=== PATIENT | female | born 1980 | race Two or more races ===

== ENCOUNTER 2024-03-02 20:10 | Inpatient (IN) | payer OTHER, SELFPAY ==
[2024-03-02 20:11] VITALS: BMI 50.3
[2024-03-02 20:44] VITALS: BP 144/82; PULSE 99; RESP 18; TEMP 36.6; O2SAT 99
--- NOTE | 2024-03-02 21:14 | XR_ITS ---
Examination: CT abdomen with intravenous contrast CT pelvis with intravenous contrast 2-D coronal reconstructions 2-D sagittal reconstructions Date and time of exam:March 02, 2024 1138 hrs. Indications: Palpable lump between the buttock region with pain beginning 2 days ago. CTDI: vol (mGy) 21.01 DLP: (mGycm) 1491 Technique: Multiple axial sections of the abdomen and pelvis have been obtained. 64 slice high-resolution scanner used. 3 mm axial sections have been obtained, post intravenous injection 60 cc [id number] 2-D sagittal, coronal reconstructions obtained. Low dose protocols were performed. One or more of the following dose reduction techniques were used; automated exposure control, adjustment of the mA and/or KV according to patient size, use of iterative reconstruction technique. Findings: Liver irregular in contour with fatty infiltration Absent gallbladder Splenomegaly 16 cm No pancreatic mass No renal or ureteral calculi, no hydronephrosis Aorta normal size Normal appendix No bowel obstruction No diverticulitis Urinary bladder intact Cellulitis pattern extending from the posterior anal region to the right and left buttock area intergluteal fold, 5.7 x 2.5 cm, suspicious for early abscess Impression: Suspicious for early abscess in the posterior perianal region
--- NOTE | 2024-03-02 21:15 | PD.EDRME ---
Rapid Medical Screening Exam RME Arrival date/time: 03/02/24 20:10 43-year-old female with past medical history of prediabetes presents emergency department complaining of abscess to buttocks that is been ongoing for 2 days. Yes Chief Complaint: Skin/Abscess/Foreign Body Time Seen by Provider: 03/02/24 21:04 Vital signs: Vital Signs Temperature 98 F 03/02/24 20:44 Pulse Rate 99 03/02/24 20:44 Respiratory Rate 18 03/02/24 20:44 Blood Pressure 144/82 H 03/02/24 20:44 Pulse Oximetry (%) 99 03/02/24 20:44 Oxygen Delivery Method Room Air 03/02/24 20:44 Vital signs reviewed by provider: Yes
[2024-03-02] MEDS: KETOROLAC INJ 60 MG/2 ML VIAL 30 MG IM (21:22)
[2024-03-02 22:21] LABS: Collection Type, Urine Clean Catch; WBC,Urine 0 /hpf (0-5)
[2024-03-02 22:21] LABS: Lactate (Lactic Acid) 1.5 mMol/L (0.4-2.0)
[2024-03-02 22:22] LABS: Basophils # (Auto) 0.1 Thou/mm3 (0.0-0.2); Basophils % (Auto) 1 % (0-2.5); Eosinophils # (Auto) 0.5 Thou/mm3 (0.0-0.5); Eosinophils % (Auto) 4 % (0-10); Hematocrit 39.2 % (36.0-46.0); Hemoglobin 13.4 g/dL (12.0-16.0); Immature Granulocytes % (Auto) 1 % (0-0); Immature Granulocytes Auto 0.07 Thou/mm3 (0.00-0.00); Lymphocytes # (Auto) 2.1 Thou/mm3 (1.0-4.8); Lymphocytes % (Auto) 18 % (10-50); Mean Corpuscular HGB Conc 34.2 g/dl (31.0-37.0); Mean Corpuscular Hemoglobin 31.5 pg (25.0-35.0); Mean Corpuscular Volume 92 fL (80-100); Monocytes # (Auto) 0.6 Thou/mm3 (0.0-0.8); Monocytes % (Auto) 5 % (0-12); Neutrophils # (Auto) 8.3 Thou/mm3 (1.8-7.7); Neutrophils % (Auto) 72 % (37-80); Nucleated Red Blood Cell % 0 /100 WBC (0); Platelet Count 252 Thou/mm3 (140-440); RDW Standard Deviation 47.6 fL (36.4-46.3); Red Blood Count 4.25 Miln/mm3 (4.00-5.20); White Blood Count 11.6 Thou/mm3 (3.6-11.0)
[2024-03-02 22:36] LABS: HCG,Qualitative Serum Negative
[2024-03-02 22:38] LABS: B-Type Natriuretic Peptide < 20 pg/mL (0-100)
[2024-03-02 22:46] LABS: Partial Thromboplastin Time 27.7 Seconds (22.0-36.0); Prothrombin Time 10.7 Seconds (9.0-12.2)
[2024-03-02 22:47] LABS: Bacteria,Urine 1+; Bilirubin,Urine Negative (Negative); Blood,Urine 1+ (Negative); Clarity,Urine Clear (Clear/Hazy); Color,Urine Lt-Yellow (Lt Yel-Yel); Glucose, Urine 4+ (Negative); Ketones,Urine Negative (Negative); Leukocyte Esterase,Urine Negative (Negative); Nitrite,Urine Negative (Negative); PH,Urine 5.5 (5.0-7.0); Protein,Urine Negative (Neg - Trace); RBC,Urine 17 /hpf (0-3); Specific Gravity,Urine 1.034 (1.001-1.035); Squamous Epithelial Cell,Urine 2 /hpf (0-5); Urobilinogen,Urine Negative mg/dL (0.0-1.0)
[2024-03-02 22:48] LABS: Alanine Aminotransferase 21 U/L (10-49); Albumin, Serum 4.5 gm/dL (3.5-5.0); Albumin/Globulin Ratio 1.5 (1.2-2.2); Alkaline Phosphatase 88 U/L (46-116); Anion Gap 9 (7-16); Aspartate Amino Transferase 12 U/L (0-34); BUN/Creatinine Ratio 13 Ratio (12-20); Bilirubin,Total 0.5 mg/dL (0.3-1.2); Blood Urea Nitrogen 10 mg/dL (9-23); Calcium 10.1 mg/dL (8.3-10.6); Calcium (Corrected) 10.1 mg/dL (8.5-10.1); Carbon Dioxide 22.7 mMol/L (20.0-31.0); Chloride 105 mMol/L (98-107); Creatinine (Component) 0.8 mg/dL (0.6-1.3); Estimated Creatinine Clearance 143.7 mL/min (>60); Glucose 254 mg/dL (74-106); Lipase 35 U/L (12-53); Osmolality,Calculated 281 (275-295); Phosphorous 4.2 mg/dL (2.4-5.1); Potassium 3.8 mMol/L (3.4-5.1); Procalcitonin 0.13 ng/ml (0.0-0.49); Sodium 137 mMol/L (136-145); Total Protein 7.5 gm/dL (5.7-8.2); Troponin I < 0.002 ng/mL (0.0-0.045); eGFR > 60 See Note
[2024-03-02 23:17] VITALS: BP 152/74; PULSE 81; RESP 19; TEMP 37.3; O2SAT 96
--- NOTE | 2024-03-02 23:25 | PC.NURSE ---
PT CAME TO ER FOR C/O SEVERE PAIN TO COCCYX DUE TO ABSCESS FOR 2 DAYS.
[2024-03-03] VITALS (19 sets, daily range): BP systolic 112–165; BP diastolic 56–94; PULSE 58–102; RESP 12–23; TEMP 36.2–37; O2SAT 91–98
--- NOTE | 2024-03-03 02:16 | PD.EDSKIN ---
ED Skin Abcess FB-RME/HPI General Chief complaint: Skin/Abscess/Foreign Body Stated complaint: LUMP IN BETWEEN BUTTOCKS Time Seen by Provider: 03/02/24 21:04 Source: patient Arrival date/time: 03/02/24 20:10 Mode of arrival: ambulatory Limitations: no limitations RME / HPI RME / HPI narrative: 03/02/24 20:10 43-year-old female with past medical history of prediabetes presents emergency department complaining of abscess to buttocks that is been ongoing for [address] CLIFFORD MAIN ED EVALUATION: 43-year-old female who presents to the emergency department via private auto comes in for evaluation of an abscess to her coccyx area. Patient notes it has been tender and red ongoing for the past 2 days. Related Data Allergies Allergy/AdvReac Type Severity Reaction Status Date / Time hydromorphone [From Dilaudid] Allergy Verified 03/03/24 00:08 Review of Systems Review of Systems Systems Reviewed: All systems reviewed, normal except as documented Past Medical History Past Medical History CARDIAC: Positive Cardiac Disorders; Negative Congestive Heart Failure RESPIRATORY: Positive Asthma; Negative Chronic Obstructive Pulmonary Disease (COPD) GENITOURINARY: Negative Renal Disease ENDOCRINE: Positive Diabetes Mellitus Type 2; Negative Diabetes Mellitus Type 1 HEMATOLOGIC: Negative Sickle Cell Disease Social History SMOKING STATUS: Never smoker ED Exam Narrative Physical exam: GENERAL APPEARANCE: alert and oriented x 4, well-developed, well-nourished, no acute distress VITALS: All vitals were reviewed and the pulse ox is 95% on room air, which is normal according to my interpretation. HEENT: Normocephalic, atraumatic; pupils equal, round, reactive to light; EOMI; mucous membranes pink, moist; oropharynx clear NECK: Supple LUNGS: CTABL; no wheezes, no rales, no rhonchi HEART: Regular rate, regular rhythm; normal S1, S2; no murmurs ABDOMEN: non distended; normal BS; soft, no tenderness, no guarding, no rebound; no masses, no organomegaly, no hernia BACK: no CVA tenderness EXTREMITIES: atraumatic; no edema NEUROLOGIC: awake; alert and oriented x4; cranial nerves II-XII grossly intact; no focal sensory or motor deficits PSYCHIATRIC: appropriate mood and affect SKIN: warm, dry, normal color; no rashes General Limitations: Present no limitations Course Quality Measures none Orders Category Date Time Status CT Screening NOW Care 03/02/24 21:14 Completed Insert IV NOW Care 03/02/24 23:[address] abdomen pelvis w con Stat Exams 03/02/24 21:14 Completed B-Type Natriuretic Peptide Stat Lab 03/02/24 22:00 Completed Blood Culture (Lab) Stat Lab 03/02/24 22:03 Received CBC Stat Lab 03/02/24 22:00 Completed Comprehensive Metabolic Panel Stat Lab 03/02/24 22:00 Completed HCG,Qualitative Serum Stat Lab 03/02/24 22:00 Completed Lactate (Lactic Acid) Stat Lab 03/02/24 22:00 Completed Lipase Stat Lab 03/02/24 22:00 Completed Magnesium Stat Lab 03/02/24 22:00 Completed Partial Thromboplastin Time Stat Lab 03/02/24 22:00 Completed Phosphorous Stat Lab 03/02/24 22:00 Completed Procalcitonin Stat Lab 03/02/24 22:00 Completed Prothrombin Time with INR Stat Lab 03/02/24 22:00 Completed Troponin I Stat Lab 03/02/24 22:00 Completed Urinalysis Stat Lab 03/02/24 21:23 Completed Urine Culture Stat Lab 03/02/24 21:23 Received Ketorolac Inj [Toradol Inj] Med 03/02/24 21:17 Discontinued 30 mg IM X1 ONE Lidocaine 1% 20 ml [Xylocaine 1% 20 ML] Med 03/03/24 01:41 Discontinued 10 ml INFL X1 ONE Vital Signs Vital signs: Vital Signs Temperature 98 F 03/02/24 20:44 Pulse Rate 99 03/02/24 20:44 Respiratory Rate 18 03/02/24 20:44 Blood Pressure 144/82 H 03/02/24 20:44 Pulse Oximetry (%) 99 03/02/24 20:44 Oxygen Delivery Method Room Air 03/02/24 20:44 Skin / Abscess / Foreign Body MDM Narrative MDM Narrative:: Scribe Attestation: Natalie Garcia am scribing for and in the presence of Dr. Clifford. Provider Notation: Although this document has been carefully reviewed, there may still be some phonetic and other typographical errors. These errors are purely grammatical due to imperfections in the software program and should not be construed in any way to compromise the substance of the patient's medical care during this visit. Patient data External records reviewed:: Other (specify) Clinical information provided by:: patient Social determinants that could affect healthcare access:: none Patient has the following chronic illnesses:: DM2, asthma How is presenting disease/condition affected by chronic disease/condition?: uneffected by Evaluation data The following diagnostics were reviewed and interpreted by me:: lab results and radiology exam(s) Lab and/or radiology exams considered but not ordered:: n/a Interpretation Summary: I personally reviewed the radiology data and agree with the radiologist's interpretation. Examination: CT abdomen with intravenous contrast CT pelvis with intravenous contrast 2-D coronal reconstructions 2-D sagittal reconstructions Date and time of exam:March 02, 2024 1138 hrs. Indications: Palpable lump between the buttock region with pain beginning 2 days ago. Findings: Liver irregular in contour with fatty infiltration Absent gallbladder Splenomegaly 16 cm No pancreatic mass No renal or ureteral calculi, no hydronephrosis Aorta normal size Normal appendix No bowel obstruction No diverticulitis Urinary bladder intact Cellulitis pattern extending from the posterior anal region to the right and left buttock area intergluteal fold, 5.7 x 2.5 cm, suspicious for early abscess Impression: Suspicious for early abscess in the posterior perianal region Dictated By: Rahul Mayen MD Medications / Prescriptions Medications or Prescriptions considered but not ordered:: n/a Medication administrations:: Medication Administration History Acetaminophen (Acetaminophen 325 Mg Tablet) 650 mg PO Q6H PRN PRN Reason: Pain 1-3 and/or Fever >100.1 Stop: 04/02/24 03:42 Ondansetron HCl (Ondansetron Inj 2 Mg/Ml Inj 2 Ml) 4 mg IV Q6H PRN; Protocol PRN Reason: NAUSEA OR VOMITING Stop: 04/02/24 03:42 Pantoprazole Sodium (Pantoprazole Inj 40 Mg Vial) 40 mg IVP QDAY KASSY Stop: 04/02/24 08:59 Discontinued Medications Ketorolac Tromethamine (Ketorolac Inj 60 Mg/2 Ml Vial) 30 mg IM X1 ONE Stop: 03/02/24 21:18 Last Admin: 03/02/24 21:22 Dose: 30 mg Documented By: OA Lidocaine HCl (Lidocaine Hcl 1% 20 Ml Vial) 10 ml INFL X1 ONE Stop: 03/03/24 01:42 Last Admin: 03/03/24 02:15 Dose: Not Given Documented By: CVL Non-Admin Reason: Other, see note Comments: DID NOT USE as above Consultations Consultation(s) initiated? (list below): Yes Consultation #1 (Physician, Specialty, Details): Hospitalist made aware of the patient?s HPI, PMHx, lab and/or radiology results. Treatment plan was discussed. Will admit for further evaluation and management. Accepts patient for admission. Time: 03:50 Diagnosis Skin/Abscess Differential Diagnosis: abscess of skin or subcutaneous tissue, cellulitis, eczema and contact dermatitis Most likely diagnosis given after review of the tests above:: Perianal abscess Admission Indicated Admission indicated?: indicated Admission Request Was there a request for admission?: Yes Admission Attestation Admission request attestation: Discussed case with [] from Hospitalist service regarding admission. Discussed patients ED course, exam findings, labs, and radiology results. The Hospitalist [agrees,declines] to accept the patient for admission. Disposition Plan Disposition Plan: Admit
--- NOTE | 2024-03-03 03:47 | PD.RESHP ---
Documentation for date of: 03/03/24 HPI History of Present Illness Chief complaint: Lower back pain, perianal abscess draining History of present illness: 43-year-old female with past medical history of morbid obesity, hypertension, [id number] type 2 diabetes, history of cholecystectomy and presented to the ED on 03/02 with draining abscess in the gluteal cleft. Patient states that about 3 days ago she started having some discomfort near her lower back and buttock area. She went to her primary care physician at [facility] who prescribed antibiotic cream and stated that if the pain did not improve to present to the ED. Patient states that prior to admission the pain was extremely severe, about a 9 out of 10 along with difficulty ambulating due to the pain. Patient has never experienced such pain before; moreover, she states that prior to that she has not had an abscess or a cyst. 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 In the ED, patient presented mildly hypertensive 144/82, heart rate 99, respiratory 18, afebrile satting 99 on room air. Pertinent lab findings include WBC 11.6, glucose 254, troponin within normal limits, BNP less than 20, Pro-Suman 0.13. Urinalysis was only positive for bacteria; but patient denies dysuria. CT abdomen pelvis shows early abscess in the posterior perianal region measuring 5.7 x 2.5 cm, splenomegaly measuring 16 cm, liver irregular with fatty infiltration. Patient will be admitted for perianal abscess that is draining; requiring likely incision and drainage, general surgery has been consulted - appreciate recommendations. Exam Vital Signs Temp Pulse Resp BP Pulse Ox O2 Del Method 97.7 F 66 16 128/73 95 Room Air 03/03/24 02:40 03/03/24 02:40 03/03/24 02:40 03/03/24 02:40 03/03/24 02:40 03/03/24 02:40 Narrative Exam Physical Exam: GENERAL: Awake, answering questions appropriately, appears stated age, morbidly obese HEENT: NC/AT. Moist mucosa. PERRLA/EOMI. Alopecia noted. CARDIO: Heart RRR, no obvious murmurs, no JVD. PULM: No coughing or visible SOB. Lungs CTA B/L. GI: Abdomen soft, NT/ND, +BS. : Perianal abscess noted draining purulent material SKIN/MSK/EXT: No wounds/discoloration/rashes/edema/amputations. +Pedal pulses present B/L. NEURO: Oriented x3, paper machine backtender strength 5/5, Moves extremities x4. Results: Labs 03/03/24 05:17 03/02/24 22:00 Labs: Short CBC 03/02/24 Range/Units 22:00 WBC 11.6 H (3.6-11.0) Thou/mm3 Hgb 13.4 (12.0-16.0) g/dL Hct 39.2 (36.0-46.0) % Plt Count 252 (140-440) Thou/mm3 BMP 03/02/24 22:00 Sodium 137 Potassium 3.8 Chloride 105 Carbon Dioxide 22.7 BUN 10 Creatinine 0.8 Glucose 254 H Calcium 10.1 Cardiac Enzymes 03/02/24 Range/Units 22:00 Troponin I < 0.002 (0.0-0.045) ng/mL Liver Function 03/02/24 Range/Units 22:00 Total Bilirubin 0.5 (0.3-1.2) mg/dL AST 12 (0-34) U/L ALT 21 (10-49) U/L Alkaline Phosphatase 88 (46-116) U/L Albumin 4.5 (3.5-5.0) gm/dL Urine 03/02/24 Range/Units 21:23 Urine Color Lt-Yellow (Lt Yel-Yel) Urine Clarity Clear (Clear/Hazy) Urine pH 5.5 (5.0-7.0) Ur Specific [place] 1.034 (1.001-1.035) Urine Protein Negative (Neg - Trace) Urine Glucose (UA) 4+ A (Negative) Quality Measures Quality Measures VTE prophylaxis Medications Home Medications and Allergies Home Medications ?Medication ?Instructions ?Recorded ?Confirmed ?Type lisinopril 20 mg tablet 20 mg PO DAILY 03/03/24 03/03/24 History montelukast 10 mg tablet 10 mg PO DAILY 03/03/24 03/03/24 History simvastatin 20 mg tablet 20 mg PO HS 03/03/24 03/03/24 History Allergies Allergy/AdvReac Type Severity Reaction Status Date / Time hydromorphone [From Dilaudid] Allergy Verified 03/03/24 00:08 Visit Medications Acetaminophen (Acetaminophen 325 Mg Tablet) 650 mg PO Q6H PRN PRN Reason: Pain 1-3 and/or Fever >100.1 Stop: 04/02/24 03:42 Ondansetron HCl (Ondansetron Inj 2 Mg/Ml Inj 2 Ml) 4 mg IV Q6H PRN; Protocol PRN Reason: NAUSEA OR VOMITING Stop: 04/02/24 03:42 Pantoprazole Sodium (Pantoprazole Inj 40 Mg Vial) 40 mg IVP QDAY KASSY Stop: 04/02/24 08:59 Discontinued Medications Ketorolac Tromethamine (Ketorolac Inj 60 Mg/2 Ml Vial) 30 mg IM X1 ONE Stop: 03/02/24 21:18 Last Admin: 03/02/24 21:22 Dose: 30 mg Lidocaine HCl (Lidocaine Hcl 1% 20 Ml Vial) 10 ml INFL X1 ONE Stop: 03/03/24 01:42 Last Admin: 03/03/24 02:15 Dose: Not Given Assessment & Plan Plan 43-year-old female with past medical history of morbid obesity, hypertension, [id number] type 2 diabetes, history of cholecystectomy and presented to the ED on 03/02 with draining abscess in the gluteal cleft will be admitted for perianal abscess that is draining; requiring likely incision and drainage, general surgery has been consulted - appreciate recommendations. #Perineal abscess Patient presenting with lower back pain along with draining abscess/cyst which apparently started about 3 days ago Patient with [facility] who gave her antibiotic cream told her to present to the ED if the pain does not improve In ED, patient presenting with worsening lower back pain with difficulty ambulating CT abdomen pelvis showed posterior perianal abscess measuring 5.7 x 2.5 cm Plan: General Surgery, Dr. Davison, consulted appreciate recommendations Multimodal analgesia Likely will require I&D N.p.o. for now #Ppr-xfqhusd-bkatltzkq, type 2 diabetes No A1c on file Patient presently takes Jardiance and Januvia at home Plan: Sliding scale insulin A1c in the a.m. #Hypertension Patient apparently takes lisinopril 10 mg daily Plan: Restart when necessary #Splenomegaly #Irregular fatty infiltration of liver Likely 2/2 to MASLD (Metabolic dysfunction-associated steatotic liver disease) Patient is morbidly obese, BMI 50 Liver function enzymes are within normal limits Findings as seen on CT Abd/P Plan: Follow-up outpatient #Tobacco dependence Patient smokes about 10 cigarettes for the past 21 years; roughly 02-[id number] smoking history Plan: Nicotine patch Hospital Management: Lines: PIV Bowel: Not needed at this time Diet: N.p.o. GI prophylaxis: Protonix DVT prophylaxis: SCD Dispo: Pending general surgery recommendations, possible I&D Code: DNR Patient seen and examined with attending Dr. Law and senior resident Dr. Dawn Vargas, PGY-1 Attending Provider Attestation/Addendum 43-year-old obese lady will be admitted for perianal abscess/cellulitis. Patient will be started on antibiotic treatment. She was seen in the ER. She is afebrile. She is alert and oriented. She had this problem once in the past. Patient will be admitted and surgical evaluation possible I&D.
[2024-03-03 05:36] LABS: Basophils # (Auto) 0.1 Thou/mm3 (0.0-0.2); Basophils % (Auto) 1 % (0-2.5); Eosinophils # (Auto) 0.5 Thou/mm3 (0.0-0.5); Eosinophils % (Auto) 6 % (0-10); Hematocrit 38.5 % (36.0-46.0); Immature Granulocytes % (Auto) 1 % (0-0); Immature Granulocytes Auto 0.05 Thou/mm3 (0.00-0.00); Lymphocytes # (Auto) 2.1 Thou/mm3 (1.0-4.8); Lymphocytes % (Auto) 25 % (10-50); Mean Corpuscular HGB Conc 33.8 g/dl (31.0-37.0); Mean Corpuscular Hemoglobin 31.7 pg (25.0-35.0); Mean Corpuscular Volume 94 fL (80-100); Monocytes # (Auto) 0.6 Thou/mm3 (0.0-0.8); Monocytes % (Auto) 6 % (0-12); Neutrophils # (Auto) 5.2 Thou/mm3 (1.8-7.7); Neutrophils % (Auto) 61 % (37-80); Nucleated Red Blood Cell % 0 /100 WBC (0); Platelet Count 239 Thou/mm3 (140-440); RDW Standard Deviation 48.9 fL (36.4-46.3); White Blood Count 8.6 Thou/mm3 (3.6-11.0)
[2024-03-03 05:59] LABS: Cardiac Risk Estimate 4.4 RATIO (3.7-5.6); Cholesterol 115 mg/dL (132-200); HDL Cholesterol 26 mg/dL (40-60); LDL Cholesterol,Calculated 69 mg/dL (0-130); Magnesium 2.2 mg/dL (1.6-2.6); Phosphorous 5.2 mg/dL (2.4-5.1); Triglycerides 102 mg/dL (30-150)
[2024-03-03] MEDS: NICOTINE PATCH 14 MG/24 HR PATCH.TD24 TOP (06:53)
--- NOTE | 2024-03-03 07:06 | PD.SURCONS ---
HPI Consult details History of present illness: 43F with HTN, HLD, asthma and morbid obesity presenting with perianal pain. Patient reports pain began a few days ago, with no clear inciting factor, and since yesterday she has noted drainage from the perianal area. She denies any fever or malaise, last meal was yesterday evening at 7 PM. Workup consistent with perianal abscess up to 5.7 cm PMH: HTN, HLD, asthma, obesity PSH: , cholecystectomy Meds: No antiplatelet or anticoagulation Allergies: Dilaudid Social history: 10 pack year smoking Review of Systems Review of Systems ROS Unobtainable: All systems reviewed & no additional complaints except as documented Meds Home Medications and Allergies Home Medications ?Medication ?Instructions ?Recorded ?Confirmed ?Type lisinopril 20 mg tablet 20 mg PO DAILY 03/03/24 03/03/24 History montelukast 10 mg tablet 10 mg PO DAILY 03/03/24 03/03/24 History simvastatin 20 mg tablet 20 mg PO HS 03/03/24 03/03/24 History Allergies Allergy/AdvReac Type Severity Reaction Status Date / Time hydromorphone [From Dilaudid] Allergy Verified 03/03/24 00:08 Exam Vital Signs Temp Pulse Resp BP Pulse Ox O2 Del Method 97.6 F 75 18 150/80 H 95 Room Air 03/03/24 06:10 03/03/24 06:10 03/03/24 06:10 03/03/24 06:10 03/03/24 06:10 03/03/24 06:10 Constitutional Constitutional: no acute distress Routine Respiratory Exam Respiratory: Present no resp distress Routine Rectal Exam Comments: At the inferior gluteal cleft there is erythema, fluctuance and tenderness Results Results: Laboratory Laboratory results: results reviewed Results: Imaging CT scan - abdomen: report reviewed and image reviewed Assessment & Plan Plan 43F with HTN, HLD, asthma presenting with perianal abscess. I explained risks and benefits of incision and drainage including the possibility of perianal fistula formation. Patient expressed understanding and agrees to proceed
[2024-03-03 07:07] LABS: Glucose Estimated Average 157 mg/dL (80-131); Hemoglobin A1C 7.1 % Hgb (4.8-6.0)
[2024-03-03] MEDS: KETOROLAC INJ 30 MG/ML VIAL IVP (07:31)
--- NOTE | 2024-03-03 08:29 | PD.RESPRO ---
Documentation for date of: 03/03/24 Subjective Subjective Interval history: This is a 43-year-old female with PMHx of morbid obesity, HTN, NIDDM, cholecystectomy and , admitted for painful perianal abscess with purulent discharge. Patient underwent uncomplicated I&D with general surgery, recommended discharge to home on AUGMENTIN and TRAMADOL for pain. Patient stable at the time of discharge. Fecal calprotectin was ordered during this visit, results pending. Patient will follow-up with general surgery within 1 week of discharge. PATIENT INSTRUCTIONS: Follow-up with PCP within 1 week of discharge, please have PCP request results for calprotectin which is currently pending. Follow-up with general surgery, Dr. Maldonado within 1-2 weeks of discharge Advised following up for fecal calprotectin Advised smoking cessation as it can prolong and complicate healing. Return to Emergency Room if symptoms persist, worsen, or new symptoms develop. Continue taking medications as prescribed below: ? AUGMENTIN past medical history of morbid obesity, hypertension, vzf-lcjxqlp-odrrhzrnf type 2 diabetes, history of cholecystectomy and presented to the ED on 03/02 with draining abscess in the gluteal cleft will be admitted for perianal abscess that is draining; requiring likely incision and drainage, general surgery has been consulted - appreciate recommendations. fecal nidhi-protectin pending ADMISSION DIAGNOSES: Perineal abscess Vcs-zmkblbm-lsgbrdepa, type 2 diabetes Hypertension Splenomegaly Irregular fatty infiltration of liver Tobacco dependence Exam Vital Signs Temp Pulse Resp BP Pulse Ox O2 Del Method 98.6 F 71 19 120/59 L 95 Room Air 03/03/24 07:38 03/03/24 07:38 03/03/24 07:38 03/03/24 07:38 03/03/24 07:38 03/03/24 07:38 Objective Labs 03/03/24 05:17 03/02/24 22:00 Labs: Laboratory Results - last 24 hr 03/02/24 03/02/24 03/03/24 21:23 22:00 05:17 WBC 11.6 H 8.6 RBC 4.25 4.10 Hgb 13.4 13.0 Hct 39.2 38.5 MCV 92 94 MCH 31.5 31.7 MCHC 34.2 33.8 RDW Std Deviation 47.6 H 48.9 H Plt Count 252 239 Neut % (Auto) 72 61 Lymph % (Auto) 18 25 [place] % (Auto) 5 6 Eos % (Auto) 4 6 Baso % (Auto) 1 1 Neut # (Auto) 8.3 H 5.2 Lymph # (Auto) 2.1 2.1 [place] # (Auto) 0.6 0.6 Eos # (Auto) 0.5 0.5 Baso # (Auto) 0.1 0.1 Immature Gran # (Auto) 0.07 H 0.05 H Absolute Nucleated RBC 0.00 0.00 Immature Gran % 1 H 1 H Nucleated RBC % 0 0 PT 10.7 INR 1.0 APTT 27.7 Sodium 137 Potassium 3.8 Chloride 105 Carbon Dioxide 22.7 Anion Gap 9 BUN 10 Creatinine 0.8 Estim Creat Clear Calc 143.7 eGFR > 60 BUN/Creatinine Ratio [address] Glu mg/dL 157 H Hemoglobin A1c 7.1 H Calculated Osmolality 281 Lactic Acid 1.5 Calcium 10.1 Corrected Calcium 10.1 Phosphorus 4.2 5.2 H Magnesium 2.0 2.2 Total Bilirubin 0.5 AST 12 ALT 21 Alkaline Phosphatase 88 Troponin I < 0.002 B-Natriuretic Peptide < 20 Total Protein 7.5 Albumin 4.5 Globulin 3.0 Albumin/Globulin Ratio 1.5 Triglycerides 102 Cholesterol 115 L LDL Cholesterol, Calc 69 HDL Cholesterol 26 L Cholesterol/HDL Ratio 4.4 Lipase 35 Procalcitonin 0.13 TSH 4.50 HCG, Qual Negative Ur Collection Type Clean Catch Urine Color Lt-Yellow Urine Clarity Clear Urine pH 5.5 Ur Specific [place] 1.034 Urine Protein Negative Urine Glucose (UA) 4+ A Urine Ketones Negative Urine Blood 1+ A Urine Nitrite Negative Urine Bilirubin Negative Urine Urobilinogen (Auto) Negative Ur Leukocyte Esterase Negative Urine RBC 17 H Urine WBC 0 Ur Squamous Epith Cells 2 Urine Bacteria 1+ A Quality Measures Quality Measures VTE prophylaxis Assessment & Plan Assessment Current Active Medications: Generic Name Dose Route Start Last Admin Trade Name Freq PRN Reason Stop Dose Admin Acetaminophen 650 mg 03/03/24 03:43 Acetaminophen 325 Mg Tablet PO 04/02/24 03:42 Q6H PRN Pain 1-3 and/or Fever >100.1 Dextrose 25 ml 03/03/24 06:40 Dextrose 50%-Water Inj 50 Ml Syringe IV 04/02/24 06:39 Q15MIN PRN BG 50-70 responsive npo pt Dextrose 50 ml 03/03/24 06:40 Dextrose 50%-Water Inj 50 Ml Syringe IV 04/02/24 06:39 Q15MIN PRN BG <50 OR BG <70 & pt unresponsive Glucagon 1 mg 03/03/24 06:40 Glucagon Inj 1 Mg Vial IM Q15MIN PRN BG <70, and no IV access Insulin Human Lispro 0 unit 03/03/24 06:45 03/03/24 07:04 Insulin Lispro (Admelog) 1 Unit/0.01 Ml Unit SC 04/02/24 06:44 Not Given Q6HR [facility] Protocol Ketorolac Tromethamine 30 mg 03/03/24 06:39 03/03/24 07:31 Ketorolac Inj 30 Mg/Ml Vial IVP 03/08/24 06:38 30 mg Q6HR PRN Administration Pain 4-6 Ondansetron HCl 4 mg 03/03/24 03:43 Ondansetron Inj 2 Mg/Ml Inj 2 Ml IV 04/02/24 03:42 Q6H PRN NAUSEA OR VOMITING Protocol Pantoprazole Sodium 40 mg 03/03/24 09:00 Pantoprazole Inj 40 Mg Vial IVP 04/02/24 08:59 QDAY KASSY
[2024-03-03] MEDS: PANTOPRAZOLE INJ 40 MG VIAL IVP (09:26)
--- NOTE | 2024-03-03 11:21 | PD.SUROPNT ---
Date of Procedure 03/03/24 Pre Op Diagnosis Perianal abscess Post Op Diagnosis Infected pilonidal cyst Procedure Incision and drainage of infected pilonidal cyst Findings Pilonidal cyst with minimal pus Procedure Description After discussion of risks and benefits, patient was brought to the operating room, SCDs were placed and general anesthesia was induced. She was placed in prone position with proper padding and was prepped and draped in usual sterile fashion. She received preoperative antibiotics. After timeout the area of most fluctuance at the inferior gluteal cleft was incised with a #15 blade and the incision was carried inferiorly. There was return of 2 cc of pus from which a culture was taken. The wound was probed with a finger and loculations were dissected bluntly. The wound was irrigated and fibrinous tissue was curettaged. Hemostasis was achieved with electrocautery. The wound was packed with moist Kerlix and covered with gauze and an abdominal pad. Patient was returned to supine position and extubated without complication. She was brought to PACU in stable condition Pathology / specimen None Estimated Blood Loss 20 Surgeon Rebeka Davison MD Surgical Staff Operation Date: 03/03/24 14:00 <No data on this case meets the specified criteria>
[2024-03-03] MEDS: ALBUTEROL/IPRATROPIUM (Duoneb) RT SOL 3 ML NEBU INH (11:42)
--- NOTE | 2024-03-03 11:42 | SUR.PHASEI ---
pt arrived to PACU via gurney with oral airway present, pt coughing and wheezing - breathing treatment given upon arrival per anesthesia, dressing to buttock clean, dry, and intact, report from Iron ROSS and Amari BARNETT
--- NOTE | 2024-03-03 12:18 | SUR.PHASEI ---
1218: Report received from Zeina Isaac RN. Pt. AAOx4, vitals stable, breathing unlabored, no complaint of nausea, complaint of pain 5/10, resuming care of pt.
--- NOTE | 2024-03-03 12:18 | SUR.PHASEI ---
Report to Zeynep
[2024-03-03] MEDS: ACETAMINOPHEN IVPB 1,000 MG/100 ML VIAL 250 MG IV (12:29)
[2024-03-03] MEDS: fentaNYL CIT INJ 50 mCg/ML AMP 2ML 100 MCG IVP ×2 (12:29→13:54)
[2024-03-03] MEDS: ONDANSETRON INJ 2 MG/ML INJ 2 ML 4 MG IV (12:31)
--- NOTE | 2024-03-03 14:43 | PC.WOUND ---
Requested of Dr. Davison to see pt for wound care packing instructions. Ok to disharge after education completed. Education completed, dressing repacked with significant other and mother at bedside. No questions or concerns. Pt to follow up with Dr Davison and [facility]. See wound brake engineer
[2024-03-03] MEDS: oxyCODONE HCL 5 MG IR TAB PO (14:48)
[2024-03-03] MEDS: METOCLOPRAMIDE INJ 5 MG/ML VIAL 2 ML 10 MG IVP (14:56)
--- NOTE | 2024-03-03 16:21 | ESDS_ITS ---
<Statement entered by Eliot Omer MD - 03/03/24 16:45> Patient was examined with the team including attending physician. Note reviewed, I agree with the discharge plan as documented. - Eliot Omer MD, PGY 2 Planned Discharge Date 03/03/24 DS: Providers Provider Date of admission: 03/03/24 03:43 Primary care physician: Ivanna Vivas PA-C Admitting Provider: Flaco Law MD Attending Provider on Admission: Flaco Law MD Consults: 03/03/24 03:45 Consult to General Surgery Routine Comment: Perianal abscess Consulting Provider: Rebeka Davison 03/03/24 14:56 Referral OP Wound Healing Dept Routine Comment: Instructions: Pilonidal Cyst s/p I&D Attending Provider on DC: Hebert Palacio MD Discharging Provider: Hebert Palacio MD DS: Diagnosis Problem List Completed Was Problem List Reviewed/Reconciled?: Yes Hospital Course Hospital Course Hospital course: This is a 43-year-old female with PMHx of morbid obesity, HTN, NIDDM, cholecystectomy and , admitted for painful perianal abscess with purulent discharge. Patient underwent uncomplicated I&D with general surgery, recommended discharge to home on AUGMENTIN and TRAMADOL for pain. Patient stable at the time of discharge. Fecal calprotectin was ordered during this visit, results pending. Additionally, A1c 7.1 this visit, patient started on METFORMIN and GLUCOSE sensor, also underwent glycemic education with nutrition. Patient will follow-up with general surgery within 1 week of discharge. PATIENT INSTRUCTIONS: * Follow-up with PCP within 1 week of discharge, please have PCP request results for calprotectin which is currently pending. * Follow-up with PCP regarding diabetes management * Follow-up with general surgery, Dr. Maldonado within 1-2 weeks of discharge * Advised following up for fecal calprotectin * Advised smoking cessation as it can prolong and complicate healing. * Return to Emergency Room if symptoms persist, worsen, or new symptoms develop. * Continue using freestyle aimee GLUCOSE sensor as he instructed * Follow-up with wound care instructions below * Continue taking medications as prescribed below CONTINUE taking the following NEW medications: ? AUGMENTIN 500?1 25 twice daily ? TRAMADOL 50 mg every 8 hours as needed for pain ? METFORMIN 500 mg twice daily CONTINUE taking the following HOME medications: ? LISINOPRIL 20 mg daily ? MONTELUKAST 10 mg daily ? ROSUVASTATIN 20 mg daily at night ADMISSION DIAGNOSES: * Perineal abscess * [id number], type 2 diabetes * Hypertension * Splenomegaly * Irregular fatty infiltration of liver * Tobacco dependence Patient case was discussed with attending, Hebert Palacio MD and senior residents Dr. Candelaria and Dr. Omer. Alexander Tom DO PGYI Time Spent with Patient Time attestation: Total time spent providing and/or coordinating discharge services: Exam Vital Signs Temp Pulse Resp BP Pulse Ox O2 Del Method O2 Flow Rate 97.3 F 64 18 112/69 93 L Room Air 4 03/03/24 16:00 03/03/24 16:00 03/03/24 16:00 03/03/24 16:00 03/03/24 16:00 03/03/24 09:48 03/03/24 13:30 Narrative Exam GENERAL: Awake, answering questions appropriately, appears stated age, morbidly obese HEENT: NC/AT. Moist mucosa. PERRLA/EOMI. Alopecia noted. CARDIO: Heart RRR, no obvious murmurs, no JVD. PULM: No coughing or visible SOB. Lungs CTA B/L. GI: Abdomen soft, NT/ND, +BS. : Perianal abscess noted, dressing in place dry and intact SKIN/MSK/EXT: No wounds/discoloration/rashes/edema/amputations. +Pedal pulses present B/L. NEURO: Oriented x3, valet runner strength 5/5, Moves extremities x4. Discharge Plan Plan Patient Disposition: HOME (Self Care) Patient condition on transfer: Stable Prescriptions/Referrals Prescriptions/Med Rec: New amoxicillin-pot clavulanate [Augmentin] 500-125 mg tablet 1 tab PO BID 7 Days Qty: 14 0RF tramadol 50 mg tablet 50 mg PO Q8H PRN (Reason: pain) 5 Days Qty: 15 0RF metformin 500 mg tablet 500 mg PO BID 30 Days Qty: 60 0RF (DME) FreeStyle Aimee 3 Sensor Device See Rx Instructions .Route Qty: 1 0RF Rx Instructions: As directed Continued lisinopril 20 mg tablet 20 mg PO DAILY simvastatin 20 mg tablet 20 mg PO HS montelukast 10 mg tablet 10 mg PO DAILY Referrals: Ivanna Vivas PA-C [Primary Care Provider] - Rebeka Davison MD [Physician] - (You will receive a phone call to confirm a follow-up appt with me in 2 weeks) Patient/Caregiver Discharge Instructions Discharge Activity: resume usual activities Other Discharge Activity Instructions:: This is a 43-year-old female with PMHx of morbid obesity, HTN, NIDDM, cholecystectomy and , admitted for painful perianal abscess with purulent discharge. Patient underwent uncomplicated I&D with general surgery, recommended discharge to home on AUGMENTIN and TRAMADOL for pain. Patient stable at the time of discharge. Fecal calprotectin was ordered during this visit, results pending. Additionally, A1c 7.1 this visit, patient started on METFORMIN and GLUCOSE sensor, also underwent glycemic education with nutrition. Patient will follow-up with general surgery within 1 week of discharge. PATIENT INSTRUCTIONS: - Follow-up with PCP within 1 week of discharge, please have PCP request results for calprotectin which is currently pending. - Follow-up with PCP regarding diabetes management - Follow-up with general surgery, Dr. Maldonado within 1-2 weeks of discharge - Advised following up for fecal calprotectin - Advised smoking cessation as it can prolong and complicate healing. - Return to Emergency Room if symptoms persist, worsen, or new symptoms develop. - Continue using freestyle aimee GLUCOSE sensor as he instructed - Follow-up with wound care instructions below - Continue taking medications as prescribed below CONTINUE taking the following NEW medications: ? AUGMENTIN 500?1 25 twice daily ? TRAMADOL 50 mg every 8 hours as needed for pain ? METFORMIN 500 mg twice daily CONTINUE taking the following HOME medications: ? LISINOPRIL 20 mg daily ? MONTELUKAST 10 mg daily ? ROSUVASTATIN 20 mg daily at night Follow up at [facility], [address] [place] [address]. Call [phone] for appointment. Woundcare: May shower than change dressing once a day and as needed for falling off or soiling with feces or urine -Wash hands with soap and water, remove old dressing and packing -Irrigate wound with normal saline, pat dry with gauze. -Lightly moisten with normal saline and pack wound from top going around in a tribe than fill remaining cavity until resitance felt. -Cover with dry gauze and secure with tape. Education Materials: Anesthesia: General Anesthesia, Surgery Anesthesia After, Nutrition for Wound Healing, Changing Dressing Dc, Discharge Instructions Wound ..., Preventing Surgical Site Infections, ED ABSCESS Fiorella-Anal IandD, [facility] General [facility] Instructions- Citizen Of [place] Print Language: Citizen Of [place] Activity Restrictions/Additional Instructions: Follow up with MD Davison in 2 weeks, if you do not hear from her office in 2 weeks, give her office a call. May shower tomorrow. Complete dressing changes as instructed. WOUND CARE: Follow up at [facility], [address] [place] [address]. Call [phone] for appointment. Woundcare: May shower than change dressing once a day and as needed for falling off or soiling with feces or urine -Wash hands with soap and water, remove old dressing and packing -Irrigate wound with normal saline, pat dry with gauze. -Lightly moisten with normal saline and pack wound from top going around in a tribe than fill remaining cavity until resitance felt. -Cover with dry gauze and secure with tape. Discharge Order Discharge Orders: Discharge (Routine); Ordered 03/03/24 Ordered By: Eliot Omer Quality Discharge Quality Measures VTE prophylaxis MD Attestestation MD Attestation I reviewed labs, imaging, EKG, home medications and prior available records. Face to face evaluation was performed by me. I have personally examined the patient and discussed assessment and plan with the IM team. I reviewed the resident note and agree with the plan with exceptions as below. Bilateral buttock abscess: CT scan showed perianal abscess 5.7 x 2.5 that extends to the gluteal area. Status post I&D by general surgery. Discussed with general surgery: Okay to discharge on p.o. Augmentin. Follow-up with general surgery in 1 week. Management of pain as needed. Uncontrolled diabetes mellitus with hyperglycemia: Type II. Continue home metofrmin Time spent is 40 minutes. More than 50% of the time was spent on patient education and coordination of care.
--- NOTE | 2024-03-03 16:30 | SUR.PHASEII ---
1630: Pt. AAOx4, vitals stable, breathing unlabored, no complaint of pain or nausea, dressing to buttocks CDI, no active bleed noted, pt. tolerated sips of water well, pt. ambulated to wheelchair with steady gait and no assist, no complications. Gave discharge instructions to the pt. and her ride, both verbalized understanding and had no further questions. Pt. left with all personal belongings. Pt. initially was to be admitted inpatient for wound care, however after getting a hold of MD Davison and letting her know that there was a high census for the hospital, she stated Georgette ROSSrn progressive care nurse could come by and educate pt. and her family on how to correctly complete a dressing change and go home. Georgette ROSS came and completed dressing change, family verbalized understanding and had no further questions. Waited for MD Palacio to put in discharge orders and medications for home, and discharged pt. once orders were in.
--- NOTE | 2024-03-03 18:37 | PC.CC ---
Pt Angelina Wynne is a 43 yr old female admitted to hospitalist services for perianal abscess. SKIN FORMER CC met with pt at bedside to complete initial assessment. At time of encounter pt is noted to be alert and oriented to person, place and situation. Pt expresses understanding admission orders. Pt able to confirm all demographic information. Pt is from home [address] [place] [address]. Pt reports living in the home with her, Shiv Wynne [phone]. Pt identifies her as surrogate DM. At baseline pt reports being independent with ambulation and with completion of her ADLs. Pt is gainfully employed. Pt does not require supplemental O2 in the home. Pt reports believing she is borderline diabetic. Pt is not on dialysis. Pt followed by Ivanna Vivas for primary care. At time of D/c pt will return home with family providing transport. Advance Directive not discussed at this time.
== END 2024-03-03 16:30 | disposition home or self-care (01) | DRG 603 ==
LOC: SERX 22:05 → SERHOLD 03-03 03:52
PROVIDERS: Surgery; Admitting Provider Internal Medicine; Emergency Provider Emergency Medicine; PCP Physician Assistant; Visit Provider Internal Medicine
PROC: 0J990ZZ Drainage of Buttock Subcutaneous Tissue and Fascia, Open Approach (ICD-10-PCS; principal; 2024-03-03 14:00)
DX: L02.215 Cutaneous abscess of perineum (principal); Z68.43 Body mass index [BMI] 50.0-59.9, adult; E66.01 Morbid (severe) obesity due to excess calories; I10 Essential (primary) hypertension; F17.210 Nicotine dependence, cigarettes, uncomplicated; E11.9 Type 2 diabetes mellitus without complications; M54.50 Low back pain, unspecified; R26.2 Difficulty in walking, not elsewhere classified; R16.1 Splenomegaly, not elsewhere classified; K76.0 Fatty (change of) liver, not elsewhere classified; Z66 Do not resuscitate; E78.5 Hyperlipidemia, unspecified; J45.909 Unspecified asthma, uncomplicated; L05.91 Pilonidal cyst without abscess
CPT/HCPCS: 36415; 74177; 80053; 80061; 81001; 83036; 83605; 83690; 83735; 83880; 83993; 84100; 84145; 84443; 84484; 84703; 85025; 85610; 85730; 87040; 87070; 87075; 87077; 87086; 87186; 87205; 96372; 96374; 96375; 99285; A4217; A4649; A9270; J0131; J0694; J1885; J2250; J2405; J2470; J2704; J2765; J3010; J3490; Q9967

== ENCOUNTER → 2024-03-05 | Outpatient (CLI) | payer OTHER, SELFPAY | END | disposition home or self-care (01) | LOC: SWHD 14:00 | PROVIDERS: PCP Physician Assistant; Referring Provider Physician Assistant; Visit Provider Student in an Organized Health Care Education/Training Program | DX: L02.31 Cutaneous abscess of buttock (principal); I10 Essential (primary) hypertension; E66.9 Obesity, unspecified; E11.69 Type 2 diabetes mellitus with other specified complication; L30.9 Dermatitis, unspecified; K76.0 Fatty (change of) liver, not elsewhere classified; R16.1 Splenomegaly, not elsewhere classified; Z72.0 Tobacco use | CPT/HCPCS: 11042; 99213; A9270; G0463 ==

== ENCOUNTER → 2024-03-10 | Outpatient (CLI) | payer OTHER, SELFPAY | END | disposition home or self-care (01) | LOC: SWHD 10:43 | PROVIDERS: Visit Provider Student in an Organized Health Care Education/Training Program | DX: L02.31 Cutaneous abscess of buttock (principal); I10 Essential (primary) hypertension; E66.9 Obesity, unspecified; Z72.0 Tobacco use; E11.69 Type 2 diabetes mellitus with other specified complication; L30.9 Dermatitis, unspecified | CPT/HCPCS: 97597; A9270 ==

== ENCOUNTER 2024-03-17 09:28 | Outpatient (AMB) | payer OTHER, SELFPAY ==
[2024-03-17 09:34] VITALS: BP 137/84; PULSE 63; RESP 16; TEMP 36.1; O2SAT 96; BMI 51.8
--- NOTE | 2024-03-17 09:34 | GSCOFFNT_ITS ---
Vital Signs - Gen [facility]rg [facility] 03/17/24 09:34 Height 1.7 m Height Method Stated Weight 150.139 kg Weight Measurement Method Standing Scale BMI 51.8 BP 137/84 H Blood Pressure Source Automatic Cuff Blood Pressure Location Right Upper Arm Position Sitting Respiration 16 Pulse 63 Pulse Source Monitor Temp 96.9 F Temp Source Temporal Artery Scan Pulse Oximetry (%) 96 Oxygen Delivery Method Room Air Med/Allergies Allergies & Medications Allergies hydromorphone [From Dilaudid] Allergy (Verified 03/17/24 09:35) VICODIN Allergy (Uncoded 03/17/24 09:35) Medication Reconciliation blood-glucose sensor (NodeFlyStyle Aimee 3 Sensor device) #1 ea 03/03/24 [Rx Confirmed 03/17/24] lisinopril 20 mg tablet 20 mg PO DAILY 03/03/24 [History Confirmed 03/17/24] metformin 500 mg tablet 500 mg PO BID 1 month #60 tabs 03/03/24 [Rx Confirmed 03/17/24] montelukast 10 mg tablet 10 mg PO DAILY 03/03/24 [History Confirmed 03/17/24] simvastatin 20 mg tablet 20 mg PO HS 03/03/24 [History Confirmed 03/17/24] MA Intake Visit Data Collection New Patient or Established: Established Patient (seen at [facility] within 3 years) Seen by Clinical Staff ONLY (RN/MA): No Reason for Visit:: PERIANAL ABSCESS F/U Pain Present Currently: Yes Pain scale:: 1 Pain Scale Used: Aguilera-Talbert/Numerical Mobile Application Developer Required: No PCP or OBGYN visit in last 3 months: Yes Date of Last Menstrual Period: 02/22/24 Do You Feel Safe at Home: Yes Smoking Status Smoking Status: Current some day smoker Cessation Counseling Provided: KIMBERLEY was advised that quitting smoking is the single most important factor to protect the health of themselves and their family. Discussed the benefits of quitting smoking with patient. Encouraged patient to quit smoking and provided Cessation assistance materials and resources. Tobacco Use: Cigarette Years smoked: 17 Are you interested in quitting?: No Immunization / Flu Flu Vaccine in the Last 12 Months: Yes Flu Vaccine Exclusion Criteria: Already Received Past Medical History Past Medical History NEUROLOGIC: Negative Seizures CARDIAC: Positive Cardiac Disorders; Negative Congestive Heart Failure RESPIRATORY: Positive Asthma; Negative Chronic Obstructive Pulmonary Disease (COPD) GENITOURINARY: Negative Renal Disease ENDOCRINE: Positive Diabetes Mellitus Type 2; Negative Diabetes Mellitus Type 1 HEMATOLOGIC: Negative Sickle Cell Disease OTHER HISTORY: Negative Blood Transfusions or Anesthesia Reactions Social History SMOKING STATUS: Smoking status: Current some day smoker LIVES WITH: Lives With: Spouse HPI HPI Narrative 43F who presented with infected pilonidal cyst s/p incision and drainage 03/05 here for planned follow up. Pt reports feeling well overall with minimal pain and drainage, she is having daily dressing changes without any difficulty ROS Review of Systems Systems Reviewed: All systems reviewed, normal except as documented Objective/Exam General General Appearance: alert, cooperative and well groomed Resp Respiratory exam: Absent respiratory distress Back Back exam: Present other (pilonidal cyst cavity with beefy red granulation tissue, no surrounding erythema, no fluctuance or tenderness) Results Culture negative Assessment & Plan Diagnosis / Problem List (1) Pilonidal cyst with abscess: Status: Acute Assessment & Plan: 43F s/p I&D of infected pilonidal cyst 03/05, recovering well F/u in 2 weeks Office Procedures GNS Level of Care Nursing/Assessment Patient Status: Established Patient Nursing Assessment/Reassesment: Medication Reconciliation, Update PMH in EMR and Vital Signs Coordination of Care: Complex Care and Chronic Disease 1-5, Education Complex Pt/Fam, 1 Ins Authorization and Staff clarify orders Established Patient Charge Established Patient Point Assignment: 100 Established Patient Point Charge: EP Level 3 (80-115) Patient Portal Questionaires Social History Living Situation History Housing Other:: Pt from home Tobacco History Smoking Status: Current some day smoker Domestic Abuse History Do You Feel Safe at Home: Yes Review of Systems Report any current symptoms Only answer those that you have currently: Past Medical History Past Medical History Have you ever been diagnosed with any of the following: Neurological Problems Seizures: No Cardiology Problems Congestive Heart Failure: No Respiratory Problems Chronic Obstructive Pulmonary Disease (COPD): No Asthma: Yes Genital/Urinary Problems Renal Disease: No Endocrine Problems Diabetes Mellitus Type 1: No Diabetes Mellitus Type 2: Yes Blood Problems Sickle Cell Disease: No Other Problems Blood Transfusions: No Anesthesia Reactions: No
== END 2024-03-17 09:49 | disposition home or self-care (01) ==
LOC: HODSRG 09:28
PROVIDERS: PCP Physician Assistant; Referring Provider Physician Assistant; Supervising Provider Surgery; Visit Provider Surgery
DX: Z48.817 Encounter for surgical aftercare following surgery on the skin and subcutaneous tissue (principal)
CPT/HCPCS: 99213; G0463

== ENCOUNTER → 2024-03-18 | Outpatient (CLI) | payer OTHER, SELFPAY | END | disposition home or self-care (01) | LOC: SWHD 13:31 | PROVIDERS: PCP Physician Assistant; Referring Provider Physician Assistant; Visit Provider Student in an Organized Health Care Education/Training Program | DX: L02.31 Cutaneous abscess of buttock (principal); I10 Essential (primary) hypertension; E66.9 Obesity, unspecified; Z72.0 Tobacco use; E11.69 Type 2 diabetes mellitus with other specified complication; L30.9 Dermatitis, unspecified | CPT/HCPCS: 99213; A9270; G0463 ==

== ENCOUNTER → 2024-03-26 | Outpatient (CLI) | payer OTHER, SELFPAY | END | disposition home or self-care (01) | LOC: SWHD 14:23 | PROVIDERS: PCP Physician Assistant; Referring Provider Physician Assistant; Visit Provider Surgery | DX: L02.31 Cutaneous abscess of buttock (principal); I10 Essential (primary) hypertension; E66.9 Obesity, unspecified; Z72.0 Tobacco use; E11.69 Type 2 diabetes mellitus with other specified complication; L30.9 Dermatitis, unspecified | CPT/HCPCS: 99213; A9270; G0463 ==

== ENCOUNTER 2024-03-31 09:23 | Outpatient (AMB) | payer OTHER, SELFPAY ==
[2024-03-31 09:35] VITALS: BP 135/89; PULSE 67; RESP 19; TEMP 36.2; O2SAT 94; BMI 51.7
--- NOTE | 2024-03-31 09:35 | PD.GSCLVISIT ---
Vital Signs - Gen Srg Clinic 03/31/24 09:35 Height 1.7 m Height Method Stated Weight 149.487 kg Weight Measurement Method Standing Scale BMI 51.7 BP 135/89 H Blood Pressure Source Automatic Cuff Blood Pressure Location Left Upper Arm Position Sitting Respiration 19 Pulse 67 Pulse Source Monitor Temp 97.2 F Temp Source Temporal Artery Scan Pulse Oximetry (%) 94 L Oxygen Delivery Method Room Air Med/Allergies Allergies & Medications Allergies hydromorphone [From Dilaudid] Allergy (Verified 03/31/24 09:36) VICODIN Allergy (Uncoded 03/31/24 09:36) Medication Reconciliation blood-glucose sensor (FreeStyle Aimee 3 Sensor device) #1 ea 03/03/24 [Rx Confirmed 03/31/24] lisinopril 20 mg tablet 20 mg PO DAILY 03/03/24 [History Confirmed 03/31/24] metformin 500 mg tablet 500 mg PO BID 1 month #60 tabs 03/03/24 [Rx Confirmed 03/31/24] montelukast 10 mg tablet 10 mg PO DAILY 03/03/24 [History Confirmed 03/31/24] simvastatin 20 mg tablet 20 mg PO HS 03/03/24 [History Confirmed 03/31/24] MA Intake Visit Data Collection New Patient or Established: Established Patient (seen at [facility] within 3 years) Seen by Clinical Staff ONLY (RN/MA): No Reason for Visit:: F/U CYST Pain Present Currently: No Schedule Hanger Required: No PCP or OBGYN visit in last 3 months: Yes Hx Now: No Do You Feel Safe at Home: Yes Authorities Contacted: N/A Smoking Status Smoking Status: Current some day smoker Cessation Counseling Provided: KIMBERLEY was advised that quitting smoking is the single most important factor to protect the health of themselves and their family. Discussed the benefits of quitting smoking with patient. Encouraged patient to quit smoking and provided Cessation assistance materials and resources. Tobacco Use: Cigarette Years smoked: 2 Are you interested in quitting?: No Immunization / Flu Flu Vaccine in the Last 12 Months: No Flu Vaccine Exclusion Criteria: No Exclusion Criteria Past Medical History Past Medical History NEUROLOGIC: Negative Seizures CARDIAC: Positive Cardiac Disorders; Negative Congestive Heart Failure RESPIRATORY: Positive Asthma; Negative Chronic Obstructive Pulmonary Disease (COPD) GENITOURINARY: Negative Renal Disease ENDOCRINE: Positive Diabetes Mellitus Type 2; Negative Diabetes Mellitus Type 1 HEMATOLOGIC: Negative Sickle Cell Disease OTHER HISTORY: Negative Blood Transfusions or Anesthesia Reactions Social History SMOKING STATUS: Smoking status: Current some day smoker LIVES WITH: Lives With: Spouse HPI HPI Narrative 43F who presented with infected pilonidal cyst s/p incision and drainage 03/05 here for planned follow up. Pt reports feeling well overall with no pain and no recent drainage, she is still using hydrofera blue to the area but feels it is mostly closed. She is also cutting down on smoking cigarettes Objective/Exam General General Appearance: alert, cooperative and well groomed Resp Respiratory exam: Absent respiratory distress Back Back exam: Present other (pilonidal cyst cavity with beefy red granulation tissue, healing well with no surrounding erythema, no fluctuance or tenderness) Assessment & Plan Diagnosis / Problem List (1) Pilonidal cyst with abscess: Status: Acute Assessment & Plan: 43F who presented with infected pilonidal cyst s/p incision and drainage 03/05, recovering well overall with wound almost fully healed. I recommended pt continue smoking cessation efforts as well as weight loss to hopefully prevent future infections Plan: Follow up as needed Office Procedures GNS Level of Care Nursing/Assessment Patient Status: Established Patient Nursing Assessment/Reassesment: Medication Reconciliation, Update PMH in EMR and Vital Signs Coordination of Care: Complex Care and Chronic Disease 1-5, Consent,records obtained, informed consent, Education Simp Pt/Fam, Results/Orders obtained and Staff clarify orders Established Patient Charge Established Patient Point Assignment: 90 Established Patient Point Charge: EP Level 3 (80-115) Patient Portal Questionaires Social History Living Situation History Housing Other:: Pt from home Tobacco History Smoking Status: Current some day smoker Domestic Abuse History Do You Feel Safe at Home: Yes Review of Systems Report any current symptoms Only answer those that you have currently: Past Medical History Past Medical History Have you ever been diagnosed with any of the following: Neurological Problems Seizures: No Cardiology Problems Congestive Heart Failure: No Respiratory Problems Chronic Obstructive Pulmonary Disease (COPD): No Asthma: Yes Genital/Urinary Problems Renal Disease: No Endocrine Problems Diabetes Mellitus Type 1: No Diabetes Mellitus Type 2: Yes Blood Problems Sickle Cell Disease: No Other Problems Blood Transfusions: No Anesthesia Reactions: No
== END 2024-03-31 09:49 | disposition home or self-care (01) ==
PROVIDERS: Supervising Provider Surgery; Visit Provider Surgery
DX: Z48.817 Encounter for surgical aftercare following surgery on the skin and subcutaneous tissue (principal)
CPT/HCPCS: 99213; G0463

== ENCOUNTER → 2024-11-11 | Outpatient (CLI) | payer MEDICAID, SELFPAY ==
--- NOTE | 2024-11-11 09:45 | XR_ITS ---
Examination: Screening digital mammography, bilateral Computer aided detection 3-D breast Tomosynthesis, bilateral Date and time of exam: 11/11/2024, 10:28 AM Comparisons: 03/23/2023 Indications: Screening Technique: Nonmagnified MLO, CC views of the breasts to been obtained, reconstructed from 3-D Tomosynthesis images. R2 computer aided detection program utilized for evaluation of suspicious masses and/or abnormal calcifications. 3-D Tomosynthesis images obtained. Technologist: Findings: There are scattered areas of fibroglandular density. No evidence of abnormal masses or suspicious calcifications. Impression: BI-RADS category 1: Negative findings (within normal) Recommend 1 year follow-up mammogram
== END | disposition home or self-care (01) ==
LOC: CDIM 09:45
PROVIDERS: Referring Provider Physician Assistant Medical; Visit Provider Physician Assistant Medical
DX: Z12.31 Encounter for screening mammogram for malignant neoplasm of breast (principal); R92.313 Mammographic fatty tissue density, bilateral breasts
CPT/HCPCS: 77063; 77067